=== PATIENT | male | born 1950 | race Caucasian/White ===

== ENCOUNTER 2019-06-10 08:58 | Emergency (ER) | payer OTHER ==
[~2019-06-10] VITALS: Ht 165.1 cm; Wt 59.0 kg
[2019-06-10 09:19] LABS: ABSOLUTE NEUTROPHILS 2.3 thou/uL (1.4-8.2); BASOPHILS 1.4 % (0.0-2.0); EOSINOPHILS 0.2 % (0.0-3.0); HEMATOCRIT 40.6 % (42.0-52.0); HEMOGLOBIN 13.7 gm/dL (14.0-18.0); LYMPHOCYTES 19.2 % (24.0-44.0); MCH 31.3 pg (26.0-34.0); MCHC 33.9 g/dL (28.0-37.0); MCV 92.5 fL (80.0-100.0); MONOCYTES 10.2 % (1.0-8.0); PLATELET COUNT 124 thou/uL (150-400); RBC 4.39 mil/uL (4.50-6.00); RDW 13.5 % (10.5-14.5); WBC 3.3 thou/uL (4.0-11.0)
[2019-06-10 09:29] LABS: ANION GAP 8 mmol/L (7-16); BUN 14 mg/dL (7-18); CALCIUM 8.9 mg/dL (8.5-10.1); CHLORIDE 95 mmol/L (98-107); CO2 28 mmol/L (21-32); CREATININE 1.3 mg/dL (0.7-1.3); GLUCOSE 160 mg/dL (74-106); POTASSIUM 4.8 mmol/L (3.5-5.1); SODIUM 131 mmol/L (136-145)
[2019-06-10] MEDS ORDERED: FIBERCON CHEWA625 MG PO (09:34)
[2019-06-10] MEDS ORDERED: LORAZEPAM 1 MG T1 MG PO (09:35)
[2019-06-10] MEDS ORDERED: COLACE100 MG PO (09:35)
[2019-06-10] MEDS ORDERED: KRISTALOSE20 GM PO (09:36)
[2019-06-10] MEDS ORDERED: RISPERDAL12.5 MG/2 IM (09:37)
[2019-06-10 09:38] LABS: MAGNESIUM 1.9 mg/dL (1.8-2.4); TROPONIN-I <0.06 ng/mL (<0.06)
[2019-06-10 09:55] LABS: URINE BILIRUBIN NEGATIVE (Negative); URINE BLOOD NEGATIVE (Negative); URINE CLARITY CLEAR; URINE COLOR YELLOW; URINE GLUCOSE-RANDOM* NEGATIVE (Negative); URINE KETONES NEGATIVE (Negative); URINE LEUKOCYTES-REFLEX NEGATIVE (Negative); URINE NITRITE-REFLEX NEGATIVE (Negative); URINE PROTEIN (DIPSTICK) NEGATIVE (Negative); URINE SPECIFIC GRAVITY 1.015 (1.005-1.035); URINE UROBILINOGEN 0.2 E.U./dl (0.2-1.0)
[2019-06-10 10:45] VITALS: BP 138/78
--- NOTE | 2019-06-11 07:56 | EKG ---
[place] [address] [address] [facility] [place] [address] ELECTROCARDIOGRAM REPORT Name: MAYRAN MCNALLY [id number] Admission: 06/10/19 Attend Phys: Discharge: 06/10/19 Date of : 46 Report #: [id number] THIS REPORT FOR: //name// [facility] ED Test Date: 2019-06-10 Test Time: 08:58:31 Pat Name: MARYAN MCNALLY Department: Room: Gender: Transitional Nurse: JONNY : 1950 Requested By: Nuno Howard Order Number: [id number] MD: Edgard Reis Measurements Intervals [place] Rate: 68 P: -15 CO: 149 QRS: -59 QRSD: 98 T: -9 QT: 419 QTc: 446 Interpretive Statements Sinus rhythm Left axis deviation No previous ECG available for comparison Electronically Signed On 06-11-2019 7:56:33 SLUICE TENDER by Edgard Reis [email or web address] <ELECTRONICALLY SIGNED> By: Edgard Reis MD, [facility] 06/11/19 [phone] Edgard Reis MD, FACC /EPI
== END 2019-06-10 11:40 | disposition home or self-care (01) ==
LOC: ER 08:58
PROVIDERS: Emergency Medicine
DX: S80.811A Abrasion, right lower leg, initial encounter (principal); R55 Syncope and collapse; Z88.0 Allergy status to penicillin; Z88.8 Allergy status to other drugs, medicaments and biological substances; W07.XXXA Fall from chair, initial encounter; Y93.89 Activity, other specified; Y92.128 Other place in nursing home as the place of occurrence of the external cause; Y99.8 Other external cause status

== ENCOUNTER 2020-02-28 08:06 | Inpatient (IN) | payer OTHER ==
[~2020-02-28] VITALS: Ht 170.2 cm; Wt 59.4 kg
[~2020-02-28 08:06] MED LIST: COLACE100 MG PO; FIBERCON CHEWA625 MG PO; KRISTALOSE20 GM PO; LORAZEPAM 1 MG T1 MG PO; RISPERDAL12.5 MG/2 IM
[2020-02-28 08:18] VITALS: BP 160/87
[2020-02-28] MEDS ORDERED: KLOR-CON 10 ER10 MEQ PO (08:51)
[2020-02-28] MEDS ORDERED: FUROSEMIDE 40 M40 MG PO (08:51)
[2020-02-28 09:00] LABS: ABSOLUTE NEUTROPHILS 12.8 thou/uL (1.4-8.2); BASOPHILS 0.2 % (0.0-2.0); HEMATOCRIT 42.7 % (42.0-52.0); HEMOGLOBIN 14.5 gm/dL (14.0-18.0); LYMPHOCYTES 2.3 % (24.0-44.0); MCH 30.7 pg (26.0-34.0); MCHC 33.8 g/dL (28.0-37.0); MCV 90.6 fL (80.0-100.0); MONOCYTES 3.9 % (1.0-8.0); PLATELET COUNT 240 thou/uL (150-400); POLYS 93.6 % (36.0-66.0); RBC 4.71 mil/uL (4.50-6.00); RDW 13.2 % (10.5-14.5); WBC 13.7 thou/uL (4.0-11.0)
[2020-02-28 09:03] LABS: URINE BILIRUBIN NEGATIVE (Negative); URINE BLOOD NEGATIVE (Negative); URINE CLARITY CLEAR; URINE COLOR YELLOW; URINE GLUCOSE-RANDOM* NEGATIVE (Negative); URINE KETONES TRACE (Negative); URINE LEUKOCYTES-REFLEX NEGATIVE (Negative); URINE NITRITE-REFLEX NEGATIVE (Negative); URINE PROTEIN (DIPSTICK) 1+ (Negative)
[2020-02-28 09:19] LABS: BACTERIA-REFLEX 1-9 Few /HPF (None Seen); HYALINE CASTS 0-3 Few /LPF (None Seen); SQUAMOUS 0-3 Few /LPF (0-3); URINE WBC-REFLEX 0-5 Rare /HPF (0-5)
[2020-02-28 09:19] LABS: CALCIUM 8.9 mg/dL (8.5-10.1); CREATININE 1.2 mg/dL (0.7-1.3); POTASSIUM 3.3 mmol/L (3.5-5.1)
[2020-02-28 09:20] LABS: CRYSTALS None Seen /LPF (None Seen); URINE RBC 0-2 Rare /HPF (0-2)
[2020-02-28 09:27] LABS: DIRECT BILIRUBIN 0.3 mg/dL (<0.1-0.2); TOTAL BILIRUBIN 0.9 mg/dL (0.2-1.0); TOTAL PROTEIN 7.5 g/dL (6.4-8.2)
[2020-02-28 10:00] LABS: BE(vivo) 7.7 mmol/L (-2 to +3); HCO3 30.7 mmol/L (22.0-26.0); PCO2 37.4 mmHg (35.0-45.0); pH 7.532 (7.360-7.450); sO2 83.3 % (92.0-98.0)
[2020-02-28 10:01] LABS: PO2 41.9 mmHg (80.0-100.0)
[2020-02-28 16:20] VITALS: BP 161/89
[2020-02-29] VITALS (8 sets, daily range): BP systolic 93–160; BP diastolic 54–102
--- NOTE | 2020-02-29 03:52 | NUR ---
ASSUMED CARE OF PT FROM ED , PT AWAKE UNABLE TO FOLLOW COMMANDS PT IN SOFT RESTRAINTS DUE PULLING AT IV LINES AND LANDERS, PT BITTING AND KICKING AT STAFF.PUMP HOUSE TECHNICIAN PLACED SHOWS NSR 90 WITH OCC PVCS , IV INFUSING WELL, LANDERS WITH CLEAR DAVID URINE. WILL CONINTUE WITH CURRENT PLAN OF CARE.
[2020-02-29 06:05] LABS: MCH 31.2 pg (26.0-34.0); MCHC 33.5 g/dL (28.0-37.0); RBC 3.98 mil/uL (4.50-6.00); RDW 13.6 % (10.5-14.5); WBC 20.5 thou/uL (4.0-11.0)
[2020-02-29 06:07] LABS: HEMOGLOBIN 12.4 gm/dL (14.0-18.0)
[2020-02-29 06:27] LABS: CALCIUM 8.4 mg/dL (8.5-10.1); CREATININE 0.8 mg/dL (0.7-1.3); POTASSIUM 3.1 mmol/L (3.5-5.1)
--- NOTE | 2020-02-29 08:12 | EKG ---
[facility] [place] [address] ELECTROCARDIOGRAM REPORT Name: MARYAN MCNALLY Room #: 361-P ADM IN M.R.#: [id number] Admission: 02/28/20 Attend Phys: Felipe Villarreal MD Discharge: Date of : 46 Report #: [id number] THIS REPORT FOR: cc: Floyd Matt MD, Dennis R MD Couchonnal, Luis F. MD ~ THIS REPORT FOR: //name// [facility] ED Test Date: 2020-02-28 Test Time: 08:32:55 Pat Name: MARYAN MCNALLY Department: Room: [facility] Gender: M Stitch Cleaner: Alanna : 1950 Requested By: Nuno Howadr Order Number: [id number] MD: Monty Garcia Measurements Intervals [place] Rate: 115 P: 75 [place]: 114 QRS: 119 QRSD: 91 T: 55 QT: 334 QTc: 462 Interpretive Statements Sinus tachycardia Atrial premature complex Right axis deviation Compared to ECG 06/10/2019 08:58:31 Atrial premature complex(es) now present Right-axis deviation now present Sinus rhythm no longer present Left-axis deviation no longer present Electronically Signed On 02-29-2020 8:11:55 CDT by Monty Garcia [email or web address] <ELECTRONICALLY SIGNED> By: Monty Garcia MD 02/29/20810 1 1 Monty Garcia MD /EPI
--- NOTE | 2020-02-29 15:26 | NUR ---
INITIAL ASSESSMENT: SW received consult. Reviewed chart and spoke with nursing and attending physician. Pt was admitted from [facility] due to sepsis/pneumonia/COVID-19. Pt is in Enhanced Isolation. Pt is febrile and not on O2. Pt is on IV abx. Pt with hx of schizophrenia. Pt has a legal guardian, Ede Stevenson. JARAD printed guardianship ppwk and faxed to unit to place on pt's chart. JARAD updated pt's nurse. JARAD left voice message for pt's guardian to provide update and confirm discharge plan. JARAD updated OTTO Poole at [facility]. No weekend discharge planned. JARAD to fax clinical info to [facility] on Tuesday for review. JARAD is following to assist as needed with discharge planning.
--- NOTE | 2020-02-29 16:30 | NUR ---
PT HAS BEEN CONFUSED THIS SHIFT, UNABLE TO COMPREHEND/RETAIN INSTRUCTIONS BY THE RN, ASSESSMENT WAS IMPEDED DUE TO PT'S INABILITY TO FOLLOW DIRECTIONS, PT IS STILL IMPULSIVE AT THIS TIME. PT WAS REQUIRING INCREASED OXYGEN THIS SHIFT, ON ROOM AIR PT WAS AT 88 SO 2L NC IS HAS BEEN PLACED, PT IS DUE FOR A CXR AT 0400 03/01/20. PT HAS ALSO BEEN HAVING LOW GRADE TEMPERATURE OF 99.3, TYLENOL/HYDROCODONE HAS BEEN PROVIDED THIS SHIFT. PILLS WERE CRUSHED AND ADMINISTERED WITH APPLE SAUCE. PT IS NOW ON ELECTROLYTE PROTOCOL AT THIS TIME
[2020-03-01 04:34] VITALS: BP 142/77
[2020-03-01 05:59] LABS: ABSOLUTE NEUTROPHILS 9.7 thou/uL (1.4-8.2); BASOPHILS 0.1 % (0.0-2.0); HEMATOCRIT 32.8 % (42.0-52.0); HEMOGLOBIN 11.3 gm/dL (14.0-18.0); LYMPHOCYTES 1.4 % (24.0-44.0); MCH 31.6 pg (26.0-34.0); MCHC 34.3 g/dL (28.0-37.0); PLATELET COUNT 172 thou/uL (150-400); POLYS 97.5 % (36.0-66.0); RBC 3.56 mil/uL (4.50-6.00); RDW 13.9 % (10.5-14.5)
[2020-03-01 06:12] LABS: PROTIME 10.3 Seconds (9.3-11.4)
[2020-03-01 06:17] LABS: FIBRINOGEN 702.7 mg/dL (210-360)
[2020-03-01 06:19] LABS: ALBUMIN 1.8 g/dL (3.4-5.0); POTASSIUM 3.4 mmol/L (3.5-5.1); TOTAL BILIRUBIN 0.6 mg/dL (0.2-1.0); TOTAL PROTEIN 5.6 g/dL (6.4-8.2)
--- NOTE | 2020-03-01 06:22 | NUR ---
ASSUMED CARE FROM DAY SHIFT PT ALERT ATTEMPTED TO GIVE FLUIDS AND SNACK PT REFUSED, PT CONITNUE TO TAKE NASAL CANNULA OUT OF NOSE , PT CONITINUE TO BE RESTLESS WHEN REPOSTIONING. IV FLUIDS INFUSING WELL. POTASSIUM REPLACEMENT PER PROTOCOL. PT REMIAN IN SOFT RESTRAINTS TO PREVENT PT FROM PULLING IV AND LANDERS OUT. WILL CONITNUE WITH CURRENT PLAN OF CARE.
[2020-03-01 11:30] VITALS: BP 128/64
--- NOTE | 2020-03-01 16:07 | NUR ---
CONBT TO REST IN BED. DOES NOT SEEM TO BE PAIN. KEEPS WIGGLING OXYGEN OFF FROM HIS NOSE. RESTRAINTS TAKEN OFF. PATIENT TAKES OFF OXYGEN WITHOUT HIS HANDS.
--- NOTE | 2020-03-01 16:11 | NUR ---
PATIENT HAS RESTED IN ROOM THROUGH THE DAY. RESTRAINTS TAKEN OFF HE WAS NOT FIGHTING ANYMORE. PATIENT KEPT ON TAKING OFF HIS OXYGEN EVEN WHEN HE WAS ON RESTRAINTS. RESPIRATIONS ARE NON LABORED AT THIS TIME. TURN Q2 HRS. WILL CONT WITH PLAN OF CARE.
[2020-03-01 20:37] VITALS: BP 118/69
--- NOTE | 2020-03-02 03:13 | NUR ---
ASSUMED PT CARE AROUND 1930. ALERT AND AWAKE. DOES NOT FOLLOW ANY DIRECTIONS AT THIS TIME. VSS. NO S/S ACUTE DISTRESS NOTED OR REPORTED AT THIS TIME. WILL CONT TO MONITOR FOR ANY CHANGES IN CONDITION.
[2020-03-02 04:09] VITALS: BP 125/83
[2020-03-02 09:16] VITALS: BP 143/86
[2020-03-02 12:31] VITALS: BP 140/82
--- NOTE | 2020-03-02 15:28 | NUR ---
PATIENT NOW SLEEPING AND RESPIRATIONS ARE EVEN NON LABORED. HE HAS BEEN MUCH AWAKE TODAY. TALKING TO NURSE AND EATING FOOD WITH MINIMAL ASSIST. CONT ON ABT AND NO ADVERSE EFFECTS NOTED. WILL CONT WITH PLAN OF CARE.
[2020-03-02 17:25] VITALS: BP 137/83
[2020-03-02 20:37] VITALS: BP 159/87
--- NOTE | 2020-03-03 00:17 | NUR ---
ASSUMED CARE AT 1900, PT CLIMBING OUT OF BED, RESISTANT TO CARES, PULLING BACK AND SHOUTING/CALLING NAMES/SPITTING. COMPLETED A BED CHANGE D/T STOOL ALL OVER BED. REMOVED BOTH RIGHT ARM IV'S, PLACED A NEW IV IN THE LEFT FA. OBTAINED ORDER FOR ONE TIME DOSE OF ZYPREXA, GAVE IM DOSE LEFT THIGH. GAVE REPORT TO LORENA DICKENS RN AT 2330. PT BED ALARM WENT OFF, AGAIN CLIMBING OUT OF BED, PULLED OUT HIS IV, STOOL ALL OVER THE PT AND THE BED. ASSISTED LORENA RN AND OPHTHALMIC MEDICAL TECHNICIAN TO DO A BATH AND COMPLETE BED CHANGE, AND PLACED A NEW IV. LORENA GONZALEZ OBTAINED ORDER FOR SOFT WRIST RESTRAINTS, WHICH WERE APPLIED TO PT.
--- NOTE | 2020-03-03 06:40 | NUR ---
ASSUMED PT CARE AROUND 0000. UPON ARRIVAL TO ROOM, PT WAS TRYING TO EXIT THE BED COVERED IN POOP. LANDERS BARELY HANGING. UNABLE TO CALM PT DOWN. DOES NOT RESPOND TO ANY VERBAL COMMANDS. IV ALREADY RIPPED OUT. BLEEDING. CALLED VEHICLE OPERATOR [employer] LEAD AND OBTAINED AN ORDER FOR RESTAINT. HOUSE SUP NOTIFIED. FAMILY NOTIFIED ON VM. PT STILL TRIES TO GET OUT OF THE BED PULLING ON HIS RESTRAINTS. WILL CONT TO MONITOR FOR ANY CHANGES IN CONDITION.
--- NOTE | 2020-03-03 08:49 | NUR ---
PER FURNACE RELINER, UNABLE TO RETREIVE PT'S OXYGEN SATURATION AND BLOOD PRESSURE DUE TO NON-COMPLIANCE, PT'S FLEXION IMPEDES ANY ACCURATE READING OF BLOOD PRESSURE, OXYGEN SAT MONITOR PT IS UNWILLING TO LET STAFF MEMBERS ASSESS. PT IS AOX1, CONFUSED, IMPULSIVE, TRYING TO GET OUT OF BED CONSTANTLY. CONTINUING TO MONITOR AND PROMOTING SAFETY.
--- NOTE | 2020-03-03 09:47 | NUR ---
ATTEMPTED TO EVAL Pt AGAIN THIS DATE. Pt IS STILL CONFUSED AND NOT FOLLOWING COMMANDS, IMPULSIVE, AND IN SOFT RESTRAINTS. Pt IS NOT APPROPRIATE FOR P.T. AT THIS TIME. PLEASE RE-CONSULT P.T. WHEN Pt IS APPROPRIATE. THANK YOU.
--- NOTE | 2020-03-03 16:25 | NUR ---
JARAD reviewed chart and spoke with nursing and attending physician. Pt is in Enhanced Isolation due to COVID-19. Pt is afebrile and not requiring O2. Pt is is on IV abx and completing course of Remdesivir (last dose is 03/04). Pt's brother/guardian has given consent for his ex-, Rose Marie ([phone]) to receive and discuss medical information on his behalf. Rose Marie has worked in the in the healthcare field. JARAD spoke with Rose Marie via phone. Introduced role of JARAD. Pt's family was unaware of pt's hospitalization and COVID positive status. JARAD provided clinical update. Pt's family would like pt to be a DNR. Outside the Hospital form and guardianship ppwk is on pt's chart. JARAD discussed with nursing. Pt has long hx of bipolar disorder/schizophrenia Rose Marie states that she and her ex- have been taking care of pt for the past 40 years. Family lives out of state, but they do come to if needed. Pt's brother was appointed pt's legal guardain in November of 2017. Pt was deemed incompetent and was at [facility] until he broke a window and left the facility. Pt has been at [facility] since that time. Pt's family states that he is non-compliant with his psych meds. Contact number for Rose Marie provided to psych for any additional questions. Rose Marie confirmed plan for pt to return to [facility] when medically stable. Rose Marie states that the facility should be working on a Medicaid application as pt has less than $2000 in his bank account. Rose Marie voiced her frustrations with the lack of communication at the facility. JARAD faxed clinical info to [facility] for review. JARAD is following to assist as needed with discharge planning.
[2020-03-03 20:08] VITALS: BP 118/74
--- NOTE | 2020-03-04 01:18 | NUR ---
ASSESSMENT COMPLETED. PT VERY UNCOOPERATIVE. UPON ASSESSMENT, PT STARTED YELLING OUT AND TELLING ME TO GET OUT OF HIS ROOM. PT IS VERY STRONG AND REQUIRES TWO NURSES TO DO THE Q2HR RESTRAINT RELEASE. LANDERS IN PLACE. LFA IV WENT BAD, ANOTHER STARTED ON R HAND. IV FLUIDS INFUSING. PT ABLE TO DRINK Q2HRS FROM WATER [facility] ONLY IF NO ONE IS HELPING HIM. AFEBRILE.FRACISCO WRIST RESTRAINTS VERY MUCH NEEDED. PT YELLING CONTINUOSLY EALIER BUT AFTER GETTING IM ZYPREXA AT 2238, HE SEEMS TO BE MORE RELAXED AND CALM. WILL CONTINUE WITH POC TILL EOS.
[2020-03-04 04:59] VITALS: BP 177/73
[2020-03-04 06:23] LABS: HEMATOCRIT 34.1 % (42.0-52.0); HEMOGLOBIN 11.4 gm/dL (14.0-18.0); MCH 30.8 pg (26.0-34.0); MCHC 33.4 g/dL (28.0-37.0); MCV 92.4 fL (80.0-100.0); RBC 3.69 mil/uL (4.50-6.00); RDW 13.6 % (10.5-14.5); WBC 3.4 thou/uL (4.0-11.0)
[2020-03-04 06:27] LABS: CALCIUM 7.6 mg/dL (8.5-10.1); CREATININE 0.7 mg/dL (0.7-1.3); POTASSIUM 3.4 mmol/L (3.5-5.1)
[2020-03-04 08:45] VITALS: BP 170/87
--- NOTE | 2020-03-04 15:42 | NUR ---
SW reviewed chart and spoke with nursing and attending physicain. Pt remains in Enhanced Isolation due to COVID-19. Pt is afebrile and not requiring O2. Pt is on IV abx. Pt to complete course of Remdesivir today. Plan is for pt to discharge back to [facility] when medically stable. SW is following to assist as needed with discharge planning.
[2020-03-04 16:29] VITALS: BP 144/65
[2020-03-04 19:14] VITALS: BP 137/57
[2020-03-04 19:58] VITALS: BP 123/80
--- NOTE | 2020-03-04 21:22 | NUR ---
PT RESTING IN BED. IVF INTACT. SOFT WRIST RESTRAINTS INTACT. PT HAS GOOD EYE CONTACT, BLUNTED AFFECT. PT YELLS WHEN TALKING. PT YELLED AT STAFF TO TAKE HER DAMN MASK OFF HE CANT HEAR. PT REQUESTED WATER AND TV BE TURNED ON. PT STATED HE DOES NOT NEED MEDICATION THAT HE DOES NOT HAVE THE VIRUS BECAUSE HE HAD THE VACCINATION. BED ALARM ON.
[2020-03-05 03:38] VITALS: BP 157/81
[2020-03-05 07:39] VITALS: BP 176/98
--- NOTE | 2020-03-05 14:45 | NUR ---
SW reviewed chart and spoke with nursing and attending physician. Pt is in Enhanced Isolation due to COVID-19. Pt finished course of Remdesivir yesterday. Pt is afebrile and not requiring O2. Pt is in restraints due to agitation. Psych is following to adjust medications. Pt will need to be out of restraints for 24 hours prior to returning to [facility]. JARAD spoke with OTTO Poole at [facility] to provide update. Confirmed pt will need to be out of restraints for 24 hours prior to returning. JARAD spoke with pt's gqftxx-lb-xph, Rose Marie, via phone to provide update and discuss discharge timeframe. Rose Marie is aware and in agreement with discharge plan. SW is following to assist as needed with discharge planning.
[2020-03-05 16:22] VITALS: BP 136/84
[2020-03-05 19:30] VITALS: BP 116/69
--- NOTE | 2020-03-05 23:29 | NUR ---
PT RESTING IN BED. PT INITIALLY NOT INTERACTING WITH STAFF DURING ASSESSMENT. ONCE PT WAS OFFERED WATER PT STARTED TALKING WITH STAFF BUT WOULD NOT OPEN HIS EYES. PT REMAINS IN SOFT WRIST RESTRAINTS, LANDERS TO DD. PT WOULD MOVE HIS HEAD RAPIDLY SIDE TO SIDE PRIOR TO OPENING HIS MOUTH FOR ANTIBIOTIC, WATER OR ICE CREAM. BED ALARM ON.
--- NOTE | 2020-03-06 01:29 | NUR ---
SOFT WRIST RESTRAINTS DISCONTINUED, PT NOT INTERFERRING WITH IVF AND CONTINUES TO REST.
[2020-03-06 05:27] VITALS: BP 133/62
[2020-03-06 05:49] LABS: HEMATOCRIT 37.8 % (42.0-52.0); HEMOGLOBIN 12.5 gm/dL (14.0-18.0); MCH 30.4 pg (26.0-34.0); MCHC 33.1 g/dL (28.0-37.0); MCV 91.6 fL (80.0-100.0); RBC 4.12 mil/uL (4.50-6.00); RDW 13.5 % (10.5-14.5); WBC 2.9 thou/uL (4.0-11.0)
[2020-03-06 05:59] LABS: CALCIUM 7.4 mg/dL (8.5-10.1); CREATININE 0.8 mg/dL (0.7-1.3); POTASSIUM 3.8 mmol/L (3.5-5.1)
[2020-03-06 07:55] VITALS: BP 147/92
--- NOTE | 2020-03-06 15:06 | NUR ---
JARAD reviewed chart and spoke with nursing and attending physician. Pt remains in Enhanced Isolation due to COVID-19. Pt has been out of restraints since caustic cresylate shift superintendent. Psych has adjusted medications. Discharge back to [facility] is anticipated for tomorrow. JARAD left voice message for OTTO Poole at [facility] to provide update. JARAD faxed updated clinical info to [facility] for review. JARAD spoke with pt's ex-sister in law, Rose Marie, to provide update and notify of anticipated discharge. Rose Marie is agreeable with plan and will notify pt's brother/guardian. JARAD is following to assist as needed with discharge planning.
--- NOTE | 2020-03-06 17:28 | NUR ---
PATIENT HAS SLEPT PART OF THE DAY. HE IS ALER ORIENTED TO SELF. DOES NOT SEEM TO BE IN PAIN. HE DID NOT SEEM TO BE AGITATED ALSO. EATS 100% MEALS. RESPIRATIONS NON LABORED. ON ROOM AIR. WILL CONT WITH PLAN OF CARE.
--- NOTE | 2020-03-07 06:00 | NUR ---
Slept some during the night. He has been calm though he refuses cares at times. Very resistant to cares. Refused V/S to be taken last night and this am. Incontinent of bladder. Was able to give him a bed bath after MN. Likes to drink ensure supplement.
[2020-03-07] MEDS ORDERED: PREDNISONE 20 M20 MG PO (08:39)
[2020-03-07] MEDS ORDERED: CEFDINIR300 MG PO (08:39)
--- NOTE | 2020-03-07 13:26 | NUR ---
DISCHARGE NOTE: JARAD reviewed chart and spoke with nursing. Pt is in Enhanced Isolation due to COVID-19. Pt is medically stable for discharge back to [facility] today. JARAD faxed finalized discharge orders/summary to [facility]. Spoke with OTTO Poole at [facility], who confirms they are able to accept pt back and request early transportation. JARAD arranged w/c van through [employer] at [phone]. JARAD spoke with pt's ex pqpeuo-[id number], Rose Marie, to provide update and notify of discharge plan. Rose Marie is aware and agreeable with plan. Rose Marie will notify her ex-/pt's legal guardian. Chart copy requested. Nursing provided with number to call report. No additonal SW needs identified at this time, but is available to assist should needs arise.
== END 2020-03-07 11:55 | DRG 871 ==
LOC: ER 08:06 → 3W 10:21 → EROBS 10:21 → 3W 02-29 00:45
PROVIDERS: Emergency Medicine; Hospitalist; Specialist; ADMIT Hospitalist; ATTEND Hospitalist
DX: A41.9 Sepsis, unspecified organism (principal); U07.1 COVID-19; G93.41 Metabolic encephalopathy; J12.89 Other viral pneumonia; J96.90 Respiratory failure, unspecified, unspecified whether with hypoxia or hypercapnia; E87.0 Hyperosmolality and hypernatremia; F20.9 Schizophrenia, unspecified; R41.0 Disorientation, unspecified; F41.9 Anxiety disorder, unspecified; Z88.0 Allergy status to penicillin; Z88.8 Allergy status to other drugs, medicaments and biological substances; Z79.899 Other long term (current) drug therapy
CPT/HCPCS: 10080; 10879